=== PATIENT | female | born 1965 | race Hispanic/Latino ===

== ENCOUNTER 2024-07-21 09:58 | Day surgery (SDC) | payer OTHER ==
[2024-07-20 11:47] VITALS: BMI 30.2
[2024-07-21] MEDS ORDERED: PROPOFOL 20 ML ONE ×2 (11:37→11:43)
[2024-07-21] MEDS ORDERED: Lidocaine 1% PF 5 ML VIAL ONE (11:44)
== END 2024-07-21 13:00 | disposition home or self-care (01) ==
LOC: SDC 09:58
PROVIDERS: ATTEND Internal Medicine Gastroenterology
PROC: 0DB58ZX Excision of Esophagus, Via Natural or Artificial Opening Endoscopic, Diagnostic (ICD-10-PCS; principal; 2024-07-21)
DX: K20.90 Esophagitis, unspecified without bleeding (principal); K22.5 Diverticulum of esophagus, acquired; E78.00 Pure hypercholesterolemia, unspecified; Z98.51 Tubal ligation status; Z79.899 Other long term (current) drug therapy
CPT/HCPCS: 88305; J2704